=== PATIENT | female | born 1955 | race Caucasian/White ===

== ENCOUNTER 2018-02-15 13:29 | Outpatient (CLI) | payer BC | END 2018-02-15 13:30 | disposition home or self-care (01) | LOC: BICRAD 13:29 | PROVIDERS: ATTEND Chiropractor | DX: M54.2 Cervicalgia (principal); M47.892 Other spondylosis, cervical region; M47.896 Other spondylosis, lumbar region | CPT/HCPCS: 72040; 72100 ==